=== PATIENT | female | born 2000 | race Two or more races ===

== ENCOUNTER 2020-12-02 23:54 | Emergency (ER) | payer MEDICAID ==
[~2020-12-02] VITALS: Ht 157.5 cm; Wt 61.0 kg
[2020-12-03] MEDS ORDERED: LORAZEPAM 2MG/ML CPJ IV STA (00:21)
[2020-12-03] MEDS ORDERED: SODIUM CHLORIDE 0.9% 1,000 ML IV ONE (00:30)
[2020-12-03 00:51] LABS: BASOPHILS % 0.3 % (0.0-2.0); EOSINOPHILS % 0.2 % (0.0-5.0); HEMATOCRIT. 37.4 % (36.0-48.0); HEMOGLOBIN. 12.8 g/dL (12.0-16.0); LYMPHOCYTES % 24.1 % (20.0-50.0); MEAN CORPUSCULAR HEMOGLOBIN 32.1 pg (28.0-32.0); MEAN CORPUSCULAR VOLUME 93.5 fL (81.0-99.0); MEAN PLATELET VOLUME 8.2 fl (7.4-10.4); MONOCYTES % 7.8 % (2.0-8.0); NEUTROPHILS % 67.6 % (40.0-76.0); PLATELET 285 x1000/uL (130-400); RED CELL DISTRIBUTION WIDTH 13.1 % (11.6-14.6)
[2020-12-03 00:52] LABS: CHLORIDE 108 mEq/L (98-107)
[2020-12-03 00:57] LABS: ETHANOL BLOOD < 10 mg/dL
[2020-12-03 01:14] LABS: PROTHROMBIN TIME 11.1 sec (9.6-11.0)
[2020-12-03 08:18] VITALS: BP 116/64
== END 2020-12-03 08:30 | disposition left against medical advice (07) ==
LOC: ER 23:54 → EDBEDREQ 12-03 02:38 → EDBEDREQTM 12-03 02:38 → SUPCPDRO 12-03 07:36 → CANRESERV 12-03 07:44 → ENRESERV 12-03 07:44 → CANBEDREQ 12-03 08:25 → ER 12-03 08:30
DX: G92.8 Other toxic encephalopathy (principal); R00.0 Tachycardia, unspecified; F11.10 Opioid abuse, uncomplicated
CPT/HCPCS: 36415; 80053; 80307; 80320; 80329; 85025; 85610; 93005; 96361; 96374; 99285; J2060; J7030; G0480